=== PATIENT | male | born 1945 | race Caucasian/White ===

== ENCOUNTER 2024-02-22 20:35 | Observation (INO) | payer MEDICARE, OTHER, SELFPAY ==
[2024-02-22] VITALS (11 sets, daily range): BP systolic 118–137; BP diastolic 70–91; BMI 24.8
[2024-02-22 17:12] LABS: % Basophils 0.6 % (0-2); % Eosinophils 1.4 % (0-6); % Immature Granulocytes 0.2 % (0-0.5); % Lymphocytes 36.1 % (20.5-51.1); % Monocytes 8.7 % (1.7-9.3); Absolute Eosinophils 0.1 10^3/uL (0-0.7); Absolute Lymphocytes 1.8 10^3/uL (1.2-3.4); Absolute Monocytes 0.4 10^3/uL (0.1-0.6); Absolute Neutrophils 2.7 10^3/uL (1.4-6.5); Hematocrit 39.1 % (39.0-52.0); Hemoglobin 13.3 g/dL (13.0-18.0); Mean Corpuscular Volume 91.1 fL (80.0-94.0); Mean Platelet Volume 9.4 fL (7.4-10.4); Nucleated Red Blood Cells % 0 % (-); Platelet Count 175 10^3/uL (130-400); Red Blood Cell Count 4.29 10^6/uL (4.70-6.10); Red Cell Dist. Width 13.6 % (11.5-14.5)
[2024-02-22 17:21] LABS: PT 16.2 Sec (11.4-14.6)
[2024-02-22 17:22] LABS: APTT 33.9 Sec (23.4-35.0)
[2024-02-22 17:24] LABS: ALT (SGPT) 15 U/L (0-50); AST (SGOT) 25 U/L (17-59); Alkaline Phosphatase 69 U/L (38-126); Blood Urea Nitrogen 20 mg/dl (9-20); Calcium 9.3 mg/dl (8.4-10.2); Carbon Dioxide 26 mmol/L (22-30); Chloride 106 mmol/L (98-107); Estimated Creatinine Clearance 81 ml/min; Glucose 98 mg/dl (70-99); Potassium 4.4 mmol/L (3.5-5.1); Sodium 139 mmol/L (135-145); Total Bilirubin 0.6 mg/dl (0.2-1.3); eGFR > 60.00
--- NOTE | 2024-02-22 18:41 | ED.CVA ---
History of Present Illness
General
Chief Complaint: CVA/TIA Symptoms
Source: patient and spouse
Exam Limitations: none
Time Seen by Provider: 02/22/24 16:45
Nursing documentation reviewed up to this point in time: agreed with
Onset of Stroke Symptoms
Onset of symptoms known: Yes
Date of onset of symptoms: 02/22/24
Travel History
Have you had any contact with someone who has COVID-19?: No
Do you have any symptoms of coronavirus? Fever > 100 degrees, chills, cough, shortness of breath, sore throat, loss of taste or smell, muscle aches, or headache?: No
History of Present Illness
History of Present Illness:
78-year-old male with past medical history of recently diagnosed atrial fibrillation on Eliquis, TIA presents to the emergency room with his for evaluation after an episode of speech disturbance. Patient reports that he had a normal morning�he
says that he woke up early, did some yard work including mowing the lawn and gardening. He says that he came in for lunch in the early afternoon and after lunch was trying to read something on his phone�he estimates that it was about 1 or 1:30 PM.
He says that while he was reading it he realized that he could not understand the words that he was reading. He says that he tried to say them out loud to himself but all that came out was gibberish. His was with him and says that he sounded
like he was speaking nonsense. She did not notice any facial droop. He says that he did not notice any change to his vision. He says he did not notice any focal weakness or numbness in his extremities. He did not have any headache. He did not
have any chest pain or palpitations or any other symptoms during this episode. He says that it lasted for about 20 minutes and by the time he arrived to the emergency room his symptoms have resolved. He says he had a very similar episode about a
year ago and was told that it was related to a TIA that she was recommended to start aspirin and statin but admits that he has not been compliant. Of note, patient was seen by his primary physician yesterday for a checkup and was found to be in
A-fib on EKG�he was sent to the emergency room (he says that he went to [facility] in [place]) and diagnosed with A-fib and was started on Eliquis; he had his first dose this morning. Here in the emergency room patient is asymptomatic says that
he feels well and offers no complaints.
Review of Systems
Review of Systems
All Other Systems: ROS reviewed and negative except as documented in HPI and ROS
Constitutional: Denies fever or chills
Respiratory: Denies cough or trouble breathing
Cardiac: Denies chest pain, palpitations or syncope
ABD/GI: Denies abdominal pain, nausea, vomiting or diarrhea
: Denies flank pain
Musculoskeletal: Denies neck pain or back pain
Neurological: Reports other (Speech disturbance); Denies dizzy, headache, weakness or numbness
Phy Exam
Physical Exam
Physical Exam:
General: Awake, alert, oriented x3; no acute distress
Head: Normocephalic, atraumatic
Eyes: Conjunctiva normal, EOMI, pupils equal round and reactive to light bilaterally
Throat: Airway intact, handling secretions
Neck: Trachea midline, supple without meningismus
Lungs: Clear to auscultation bilaterally, no wheezing, rales, rhonchi
Heart: Regular rate and rhythm, no murmurs, gallops, or rubs
Abd: Soft, non distended, nontender
Neuro: Cranial nerves intact 2 through 12, speech is fluent with no dysarthria or aphasia, no limb ataxia, motor and sensory function is intact and symmetric proximally and distally in the upper and lower extremities
Skin: no rash
Extremities: No edema in extremities, equal pulses in all extremities
Scores
NIH Stroke Score
Level of Consciousness: 0 - Alert
LOC Questions: 0-Answers both correctly
LOC Commands: 0-Performs both correctly
Best Horizontal Gaze: 0-Normal
Visual Carnes: 0=Normal, no visual loss
Facial Palsy: 0=Normal, symmetrical
Motor - Right Arm: 0=No drift 10 seconds
Motor - Left Arm: 0=No drift 10 seconds
Motor - Right Le-No drift 5 seconds
Motor - Left Le-No drift 5 seconds
Limb Ataxia: 0-Absent
Sensation: 0-Normal
Best Language: 0-No aphasia
Dysarthria: 0-Normal
Extinction and Inattention: 0-No abnormality
Total Score:: 0
Heart Failure Risk
Heart Failure Risk Score: Not Applicable
Heart Score for Chest Pain Patients
STEMI patient?: Not applicable
Withdrawal Assessment of Alcohol
Withdrawal Assessment Completed?: Not applicable
Course
Orders/Labs/Results
Orders:
Orders
02/22/24 16:50
Electrocardiogram (*1) Urgent
Reason for Study: TIA/Stroke
EKG- Treatment ONCE
02/22/24 17:02
Complete Blood Count/With Diff Urgent
Comprehensive Metabolic Panel Urgent
PTT Urgent
Prothrombin Time Urgent
02/22/24 17:22
NEUROLOGY CONSULT Urgent
Consulting Provider: Sameer Bacon
Was physician already notified: Yes
02/22/24 17:24
CT Head & Neck Angio W/wo IV Urgent
Comment:
Reason For Exam: speech disturbance--rq by neuro
Abnormal Lab Results
02/22/24
17:02
RBC 4.29 L 10^6/uL
(4.70-6.10)
PT 16.2 H Sec
(11.4-14.6)
Total Protein 6.0 L g/dl
(6.3-8.2)
02/22/24 17:02
02/22/24 17:02
Vital Signs
Initial and Last Documented VS:
Initial Vital Signs
Temp Pulse Resp BP Pulse Ox
36.7 C 61 16 132/83 99
02/22/24 16:35 02/22/24 16:35 02/22/24 16:35 02/22/24 16:35 02/22/24 16:35
Last Documented Vital Signs
Temp Pulse Resp BP Pulse Ox
36.7 C 53 18 137/91 99
02/22/24 16:35 02/22/24 18:45 02/22/24 18:45 02/22/24 18:35 02/22/24 18:45
MDM/Problems Addressed
Differential Diagnosis Includes:
TIA, seizure, complex migraine
MDM/Problems Addressed:
78-year-old male with history as above presents for evaluation after what sounds like an episode of receptive and expressive aphasia. Lasted for 20 minutes and resolved. Feels well here in the emergency room. Vital signs are normal. Exam as
above�NIH stroke scale 0., Picture is consistent with a TIA. Plan to place an IV check labs including CBC and CMP; discussed case with neurology will send for CTA head and neck. Check an EKG. Will monitor closely reassess after the above.
Labs reviewed: CBC unremarkable, CMP no clinically significant abnormalities. CTA head and neck negative for any acute pathology. Patient in sinus rhythm with stable vitals. Will plan to admit for neurochecks, neuroconsult. Discussed with
hospitalist for admission.
Chronic conditions affecting care:
Atrial fibrillation
*Radiology
Radiology exam reviewed: radiology read reviewed
*Pulse Oximetry
Patient hypoxic: no
*EKG
Interpreted by ED Provider?: Yes
Heart Rate: 59
Rate: normal
Rhythm: sinus
[place]: normal axis
Interval: normal interval
QRS Pattern: normal QRS
Ischemia: no ischemia
*Critical Care Note
Total Time (30-74mins, 75-104mins- exclusive of procedures): Not Applicable
Data Reviewed
Source: patient and spouse
Patient Management
Discussion with other providers: Hospitalist (Discussed with hospitalist) and Cumulative Effects Analyst (Discussed with neurology)
Escalation/DeEscalation of care consider admission/obs:
Admission indicated
ED Attending Note
-
Portions of this chart may have been created with voice recognition software.� Occasional wrong word or��sound alike� substitutions may have occurred due to the inherent limitations of voice recognition software.
Discharge Plan
Departure
Patient Disposition: Admit
Date of Disposition: 02/22/24
Time of Disposition: 18:56
Presentation/result/management discussed w/ accepting MD/DO: Hospitalist
Discharge Problem:
Brain TIA
Referrals:
Hernán Pérez DO [Family Provider] -
Interventions
Interventions:
*Risk Screen - Suicide Last Done: 02/22/24 17:14
*General Assessment Last Done: 02/22/24 17:14
*Neglect/Abuse Screening Last Done: 02/22/24 17:14
*ED COVID-19 Vaccine History Last Done: 02/22/24 16:35
ED- Pulmonary Assessment Last Done: 02/22/24 17:06
ED- Neurological Assessment Last Done: 02/22/24 17:06
ED- Cardiac Assessment Last Done: 02/22/24 17:06
Discharge Date and Time
Print Language: PERSIAN
[2024-02-22] MEDS: ASPIRIN 325 MG PO (19:08)
--- NOTE | 2024-02-22 19:24 | HPS.HSE ---
Family Physician
-
Family Physician: Hernán Pérez
Chief Complaint
-
difficulty speaking
History of Present Illness
78-year-old male past medical history of recently diagnosed atrial fibrillation on Eliquis, TIA, presented to the emergency room for episode of speech disturbance. Patient states that he was normal in the morning and woke up early and did some yard
work. Around 1:30 PM he was trying to read something on his phone and while he was reading it he realized that he could not understand the words that he was reading. He tried to say them out loud to himself but only chiara was coming out.
was with him and stated that he was speaking nonsense. She did not notice any facial droop. He denies any changes in vision. He denies any focal weakness or numbness in the extremities. He denies headache. Denies balance problem. He denies chest
pain or palpitations. The symptoms lasted 20 minutes and resolved by time he came to the emergency room.
He had a very similar episode a year ago and was told that it was a TIA and he was recommended to start aspirin and statin but admits that he has not been compliant with this.
Patient was primary physician yesterday for checkup and was found to be in new onset atrial fibrillation and was started on Eliquis which he took the first dose this morning. Patient had an episode of chest pressure last week and palpitations and
on his watch naveen, he had noted that he was in possible A-fib.
He denies smoking or alcohol use.
Mother with PVCs, father and brother with coronary artery disease.
Medical History
Past Medical History
Past Medical History: Reports Other (recently diagnosed atrial fibrillation on Eliquis, TIA)
Past Surgical History: Reports Other (Tonsillectomy)
Social History
Tobacco: Non-smoker
Alcohol: None
Drug: None
Family History
Family History: Other
Allergies / Home Medications
Allergies reflects when Allergies were last updated in [employer].
Home Medications with original date entered in [employer]
Allergy/Medication List:
Allergies
Allergy/AdvReac Type Severity Reaction Status Date / Time
No Known Allergies Allergy Verified 02/22/24 16:41
Home Medications
No Meds [No Current Medications] 02/22/24
Review of Systems
-
History Source: Patient
A 12 point ROS was completed and negative except as noted: Yes
Constitutional: Reports No Symptoms
EENT: Reports No Symptoms
Respiratory: Reports No Symptoms
Cardiac: Reports No Symptoms
Abdomen/GI: Reports No Symptoms
: Reports No Symptoms
Musculoskeletal: Reports No Symptoms
Skin: Reports No Symptoms
Neurological: Reports See HPI
Endocrine: Reports No Symptoms
Hematologic/Lymphatic: Reports No Symptoms
Psych: Reports No Symptoms
Physical Exam
Vital Signs
Vital Signs
Temp Pulse Resp BP Pulse Ox
98.1 F 60 18 136/84 99
02/22/24 16:35 02/22/24 19:15 02/22/24 19:15 02/22/24 19:00 02/22/24 19:15
Physical Exam
General: Well Developed, Well Nourished and No Apparent Distress
HEENT: NormoCephalic, Moist mucous membranes and Atraumatic
Respiratory: Clear
Cardiac: S1/S2 and Regular Rhythm; No Murmur or Rub
GI: Soft, Non Tender, Non Distended and Normal Bowel Sounds; No Organomegaly
Rectal: Deferred by Provider
Musculoskeletal: No Clubbing, No Cyanosis and No Edema
Skin: No Rash
Neuro: Nonfocal/grossly intact
Laboratory Results
-
02/22/24 17:02
02/22/24 17:02
Laboratory Results
PT 16.2 Sec (11.4-14.6) H 02/22/24 17:02
INR 1.30 02/22/24 17:02
APTT 33.9 Sec (23.4-35.0) 02/22/24 17:02
Total Bilirubin 0.6 mg/dl (0.2-1.3) 02/22/24 17:02
AST 25 U/L (17-59) 02/22/24 17:02
ALT 15 U/L (0-50) 02/22/24 17:02
Alkaline Phosphatase 69 U/L (38-126) 02/22/24 17:02
Data Reviewed
-
Lab Data: Labs Reviewed by me
Old Records: Reviewed
Impression/Plan
-
IMPRESSION:
PLAN:
# TIA
-CT head and CTA head and neck without any abnormality
-Aspirin 325 mg given,
-Check MRI brain
-Hold Eliquis for now until MRI brain
-Start atorvastatin 40 mg
-Check A1c and lipid panel
Newly diagnosed atrial fibrillation yesterday
-Telemetry
-Hold Eliquis
Full code
DVT prophylaxis�SCDs
Regular diet
[2024-02-22] MEDS: LIPITOR 40 MG PO (21:56)
[2024-02-23] VITALS (13 sets, daily range): BP systolic 110–153; BP diastolic 72–128
[2024-02-23 07:15] LABS: HDL Cholesterol 61 mg/dl; LDL Cholesterol, Calculated 103 mg/dl; Total Cholesterol 176 mg/dl (50-199); Triglyceride 61 mg/dl (10-149); Very Low Density Lipoprotein 12 mg/dl (0-30)
--- NOTE | 2024-02-23 08:12 | CON.NEURO4 ---
Addendum entered and electronically signed by Pedro Anna MD 02/23/24 13:15:
Patient is a 78-year-old man with history of migraine with aura presenting the hospital with episode of visual abnormality and speech abnormality which has resolved.
Patient describes a history of similar episode around 1 year ago for which she had hospitalization brain MRI and neurology evaluation, that episode lasted around 20 to 60 minutes of visual difficulty and speech difficulty.
Patient does report visual aura before migraine headache which is infrequent.
Patient had had a recent new diagnosis of atrial fibrillation and had been started on apixaban.
Yesterday he was sitting in his house reading when he noticed acute onset ability of inability to read words his vision seemed okay but he could not seem to process the words themselves and when he started to speak he could not speak properly so his
brought him to the ER. Total duration of symptoms seems around 20 to 40 minutes with spontaneous resolution. Patient did have mild headache as well as in the day or bowel movement.
Neurologic examination is unremarkable
CT head and CT angiogram of the head and neck unremarkable
Brain MRI shows no acute infarct
Assessment: Most likely this is either TIA or migraine aura. Given atrial fibrillation, his age and possible TIA I do think he needs chronic anticoagulation. Less likely that this is seizure based on a bit too long of a duration of the symptom
episode and previous and current normal EEG studies.
Recommendations
-Not seeing indication for chronic antiseizure medication as I feel this is more likely TIA or migraine aura
-Would restart full dose anticoagulation apixaban 5 mg twice daily
-Start Zetia for control of cholesterol given unable to tolerate statins
-Neurology follow-up 4 to 6 weeks
-No barriers to discharge at this point
Original Note:
Documented by User: Sophy Lima NP 02/23/24 11:36
Consultation - Neurology 4
-
CONSULTING PHYSICIAN: Rabia Anna MD
REFERRING PHYSICIAN: ER/Dr. Will
DICTATED BY: JUSTIN Dexter
DATE/TIME OF REQUEST: 02/22/24
DATE/TIME OF CONSULTATION: 02/23/24
Reason for Consultation: TIA
History of Present Illness:
This is a 78-year-old left-handed male who has presented to the hospital on 02/22/24 with report of transient aphasia. Patient and his via telephone report that over one year ago in October 2022 he had an episode of inability to read and
jumbled speech lasting somewhere around 30-45 minutes. He was evaluated at another hospital at that time and reports having a negative MRI brain. He was told the event was probably a TIA and he was started on aspirin 81mg daily and a statin. He
reports having muscle cramps from atorvastatin and simvastatin in the past and he was not compliant with taking the statin. He followed up outpatient with a Neurologist who that can't remember the name of, and reports that the Neurologist thought
the event sounded more like a seizure and sent him for an EEG. The EEG was unremarkable and he was never started on seizure medication. Since that event he reports that he memory has been noticeably poor. He endorses short and jail memory
issues. He has difficulty remembering names and his tells him he forgets entire conversations. She denies any starring episodes or seizure-like activity. He denies getting lost while driving or any car accidents. He manages the finances
but she has always done this.
Two days ago on 02/21/24 he reports going to his PCP for a scheduled annual physical exam. They did an EKG and told him he was in Afib. They gave him a script for Eliquis 5mg BID and a statin and instructed him to go to the ER for further
evaluation. He was evaluated at [facility] and reports that he was in normal sinus rhythm while he was there and he was discharged home with instructions to follow-up with Cardiology. Then yesterday (02/22/24), he reports doing yard work all
morning without any difficultly. He ate lunch and then around 1330 he picked up a magazine to read and noticed that he could not comprehend any of the written words. He went to talk to his and his speech came out jumbled. This lasted about 20
minutes before resolving. He called his PCP who referred him to the ER for evaluation. CTA head/neck was obtained and is negative for any acute abnormalities. NIHSS was 0. He was not a candidate for TNK/IAT due to NIHSS 0 and no LVO. He had taken
one dose of Eliquis yesterday morning. He was loaded with aspirin in the ER. There was no tongue-biting or incontinence of bowel/bladder associated with this event or last year's event.
Currently (02/23/24), patient reports that his speech is at it's baseline but he feels more forgetful than usual, he could not recall the events of this week until reminded of the story by his . He reports feeling nauseous once this morning but
then had a bowel movement and felt improved. He denies any headache, dizziness, vision change, swallowing difficulty, numbness, weakness, chest pain, and palpitations. He does report that for the past three weeks he has felt short of breath while
walking his dog which is very unusual for him. He has a history of migraine headaches with aura decades ago, and in more recent years he reports having ocular migraines. His ocular migraines are associated with bilateral central vision loss, rarely
this is followed by a headache but his last headache was one year ago. He as had about 3-4 ocular migraines this year, the last one was one month ago. He takes 3 ibuprofen at the onset of his vision change and then goes to sleep and his symptoms
always resolve. He also endorses some mild chronic neck pain and he sees a functional neurologist who does chiropractic work on him as needed. He hasn't been to the chiropractor in at least 6 weeks and reports they only do 'gentle' neck
manipulation. He denies any history of seizure or head/neck trauma. His daughter had epilepsy but they attribute that to starting after she had spinal meningitis at 6m of age.
Past Medical History: TIA, HLD, new diagnosis paroxysmal Afib
Surgical History: Tonsillectomy.
Family History: Daughter- spinal meningitis 6m old, epilepsy since then
Social History: Denies tobacco, alcohol, and illicit drug use. 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 Lives with his .
Allergies: Statins- muscle cramps
Home Medications: See below.
Review of Symptoms:
Patient denies any fever, headache, chest pain, shortness of breath, GI or symptoms.
�Per the HPI.�All systems are reviewed negative except above.
Physical Exam:
The patient is afebrile, abdomen is nondistended, breathing is unlabored, skin is warm and dry, no edema.
NIH Stroke Scale:
I performed the NIH stroke scale on the patient on 02/23/24 at 0830. The patient scored 0 points on the NIH stroke scale assessment, which were assigned as follows: See below.
Neurologic Examination:
The patient is awake, alert and oriented x 3. He is able to follow commands and answer questions appropriately. There is no aphasia or dysarthria. On cranial nerve assessment, pupils are 3 mm bilateral, round and reactive to light and
accommodation. Visual carnes are full. Extraocular movements are intact. Facial sensations are intact and bilaterally symmetrical, there is no facial asymmetry. Hearing is intact bilaterally to normal conversation volume. Tongue palate and uvula are
midline. Sternocleidomastoid strengths are full bilaterally. Motor strengths are 5/5 bilateral upper and lower extremities on medical research [place] scale. There is no drift or involuntary movement noted. Deep tendon reflexes are 2+ bilateral
upper and lower extremities and Babinski is absent bilaterally. Sensations of touch, temperature and vibration are intact and bilaterally symmetrical. There was no extinction noted on double simultaneous stimulation. Coordination is intact by finger
to nose bilaterally.
Lab Results: See below.
Neuro Imaging:
1. CTA Head/Neck 02/22/24: CT of the head without acute intracranial abnormality. No evidence of internal carotid artery or vertebral artery dissection bilaterally. No proximal intracranial arterial stenosis, vessel cut off or displacement.
Differentials for the patient's presentation include:
1. TIA or small ischemic stroke likely producing aphasia.
2. New diagnosis paroxysmal Afib.
3. Low concern for seizure, symptoms less supportive of this and duration of symptoms is longer than would be expected.
4. Possible underlying cognitive impairment.
Patient has the following risk factors for their symptoms: Afib only one dose of OAC, age
IV Tenecteplase/IAT candidacy: He was not a candidate for TNK/IAT due to NIHSS 0 and no LVO.
Recommendations:
-Resume Eliquis 5mg BID given Afib, discontinue aspirin.
-Goal normotension.
-MRI brain noncontrast pending.
-Routine EEG pending.
-LDL goal <70. LDL is 103. Patient is intolerant to statins, initiate Zetia 10mg daily.
-Goal normoglycemia, hbA1c is 5.7.
-NIHSS and neurological checks per unit guidelines.
-Provide patient with a stroke education packet.
-PT/OT/ST evaluations.
-DVT prophylaxis with OAC.
-Neuropsychological testing as an outpatient for memory follow-up.
-Checking blood work for metabolic abnormalities.
-Will follow pending results.
Discussed patient care with: Dr. Anna, the patient, patient's
Vital Signs and Labs
-
Vital Signs and Labs:
Vital Signs
Temp Pulse Resp BP Pulse Ox
97.3 F 73 22 149/74 97
02/23/24 10:37 02/23/24 10:30 02/23/24 10:30 02/23/24 09:00 02/23/24 07:32
Lab Results
02/22/24 17:02
02/22/24 17:02
PT 16.2 Sec (11.4-14.6) H 02/22/24 17:02
INR 1.30 02/22/24 17:02
APTT 33.9 Sec (23.4-35.0) 02/22/24 17:02
Sodium 139 mmol/L (135-145) 02/22/24 17:02
Potassium 4.4 mmol/L (3.5-5.1) 02/22/24 17:02
BUN 20 mg/dl (9-20) 02/22/24 17:02
Glucose 98 mg/dl (70-99) 02/22/24 17:02
Calcium 9.3 mg/dl (8.4-10.2) 02/22/24 17:02
LDL Cholesterol, Calc 103 mg/dl 02/23/24 06:09
Medications
-
Active Medications
Generic Name Dose Route Start Last Admin
Trade Name Gino PRN Reason Stop Dose Admin
Apixaban 5 mg 02/23/24 10:30
Apixaban (Eliquis) 5 Mg Tablet PO 03/22/24 10:29
BID ISAEL
Ezetimibe 10 mg 02/23/24 22:00
Ezetimibe (Zetia) 10 Mg Tablet PO 03/22/24 21:59
HS ISAEL
Sodium Chloride 0 flush 02/22/24 23:00
Sodium Chloride 0.9% (Flush) Syringe IV 03/21/24 22:59
PER PROTOCOL ISAEL
Home Medications
�Medication �Instructions �Recorded
apixaban 5 mg tablet (Eliquis) 5 mg PO BID 02/22/24
NIH Stroke Score
Subsequent NIH Scale
Date of Subsequent NIH Scale: 02/23/24
Time of Subsequent NIH Scale: 08:30
NIH Stroke Score
Level of Consciousness: 0 - Alert
LOC Questions: 0-Answers both correctly
LOC Commands: 0-Performs both correctly
Best Horizontal Gaze: 0-Normal
Visual Carnes: 0=Normal, no visual loss
Facial Palsy: 0=Normal, symmetrical
Motor - Right Arm: 0=No drift 10 seconds
Motor - Left Arm: 0=No drift 10 seconds
Motor - Right Le-No drift 5 seconds
Motor - Left Le-No drift 5 seconds
Limb Ataxia: 0-Absent
Sensation: 0-Normal
Best Language: 0-No aphasia
Dysarthria: 0-Normal
Extinction and Inattention: 0-No abnormality
Total Score:: 0
Modified [place] (mRS) Score
Modified [place] Scale (mRS): No symptoms
Score: 0

Documented by User: Pedro Anna MD 02/23/24 13:12
NIH Stroke Score
NIH Stroke Score
Total Score:: 0
Modified [place] (mRS) Score
Score: 0
[2024-02-23 09:34] LABS: Glycohemoglobin (HgbA1c) 5.7 % (4.0-5.6)
[2024-02-23] MEDS: LOW STRENGTH ASPIRIN 81 MG PO (09:37)
--- NOTE | 2024-02-23 10:39 | PTCARENOTE ---
pt aaox3. nihss done with maintenance technician 3rd shift rn zero. pt states he has no pain but did have a bought of nausea that passed after a BM. no headache. does state ringing in his ears since admission but has improved.
--- NOTE | 2024-02-23 11:03 | CM ---
CM reviewed medical records. REID given.
Patient confirmed demographics. Patient lives independently with spouse in a two story home. Patient does not have a history of VN, SNF or DME. Patient is active with his PCP. Patient uses [facility] for medication services. CM will continue to follow as
needed pending continued medical work up and PT recommendations.
PLAN: home vs. Home with VN vs. Outpatient PT
[2024-02-23] MEDS: ELIQUIS 5 MG PO (12:13)
--- NOTE | 2024-02-23 12:17 | EEG.RPT ---
Electroencephalogram Report
Recording
Date of EE02/23/24
Type of EEG: Routine
Length of EEG recordin minutes
Done with Video Recording: Yes
Patient Status: Emergency Room
Recording Conditions: Awake, Drowsy and Asleep
Hyperventilation Performed: No
Photic Stimulation Performed: Yes
Report
GREATER THAN 1 HOUR EEG REPORT
EEG INTERPRETATION:
Unremarkable EEG for age
CLINICAL CORRELATION:
A normal EEG does not rule out a diagnosis of epilepsy. If clinical suspicion for seizure persists, a prolonged recording may be warranted.
Clinical correlation is advised.
METHODS:
A 21 channel digitized electroencephalogram (EEG) was performed in the [facility]. The 10/20 international system of electrode placement was used with ECG and lateral/vertical eye movements recorded. Persyst quantitative EEG
analysis was performed.
ELECTROENCEPHALOGRAPHER IMPRESSION(S):
Quality of study
Good
Background
Unremarkable, well maintained, medium amplitude alpha-frequency and unremarkable anterior-posterior voltage gradient
With eye opening the background activity changed to a low voltage mixture of frequencies.
Sleep
Drowsiness present
Stage 1 and 2
Photic Stimulation
Did not activate the record
ECG
Normal sinus rhythm
--- NOTE | 2024-02-23 13:54 | W.PN.HOSP.TC ---
Addendum entered and electronically signed by Nixon Eugene MD 02/23/24 14:27:
Spoke with neurology and will discharge patient home
Time of discharge 36 minutes
Original Note:
Today's Communication/Plan
-
Monitor vital signs and see plan
MRI
Possible DC today if okay with PT/OT
Continue Eliquis
Neurology follow-up outpatient
Assessment / Plan
Assessment / Plan
General: Well Developed, Well Nourished and No Apparent Distress
HEENT: NormoCephalic, Moist mucous membranes and Atraumatic
Respiratory: Clear
Cardiac: S1/S2 and Regular Rhythm; No Murmur or Rub
GI: Soft, Non Tender, Non Distended and Normal Bowel Sounds; No Organomegaly
Rectal: Deferred by Provider
Musculoskeletal: No Clubbing, No Cyanosis and No Edema
Skin: No Rash
Neuro: Nonfocal/grossly intact
TIA
-CT head and CTA head and neck without any abnormality
MRI negative for acute CVA. Did show some atrophy. EEG was also negative. Per neurology this could be likely TIA. Neurology is okay with patient going home on Eliquis. Started Zetia.
-Check MRI brain
-Hold Eliquis for now until MRI brain
-Start atorvastatin 40 mg
-Check A1c and lipid panel
Prediabetes
monitor
Newly diagnosed atrial fibrillation; unable to further clarify
-Telemetry
currently in sinus
eliquis restarted
recommend patient to get echo outpatient
Full code
DVT prophylaxis�eliquis
Anticipated Discharge: Today
Subjective/Interval History
-
Date of Service: February 23, 2024
denies headache
Objective Data
-
Vital Signs:
Vital Signs
Temp Pulse Resp BP Pulse Ox
97.3 F 73 22 149/74 97
02/23/24 10:37 02/23/24 10:30 02/23/24 10:30 02/23/24 09:00 02/23/24 07:32
--- NOTE | 2024-02-23 14:27 | W.DCSUMMARY ---
Discharge Summary
Discharge Data
Date of Admission: 02/22/24
Date of Discharge: 02/23/24
-
Pending Results: No
Hospital Course
78-year-old male with past medical history of recently diagnosed atrial fibrillation came to the hospital with aphasia. CT scan initially did not show any signs of stroke. Patient was seen by neurology throughout hospitalization. Given his recent
diagnosis of atrial fibrillation there was concern of patient having CVA. MRI however was negative for any acute stroke. Neurology thought patient's symptoms could likely be from a TIA event and they recommended patient to continue Eliquis
indefinitely. His LDL was also elevated so he was started on Zetia. His A1c was 5.7 consistent with prediabetes. Patient was also eval by physical therapy and was recommended home on dc. Once patient symptoms resolved, he was then discharged home
with instructions to follow-up with all his physicians outpatient. On discharge he was recommended to get echocardiogram done outpatient.
Discharge Plan
-
Patient Disposition: Home (Routine Discharge)
Discharge Diagnosis/Procedures: Transient ischemic attack
Pre prediabetes
Hyperlipidemia
Newly diagnosed atrial fibrillation
Diet: As tolerated
Activity: As tolerated
Driving Restrictions: As prior to admission
Bathing Restrictions: None
Others Tests: Echocardiogram with your primary care provider
Referrals:
Hernán Pérez DO [Family Provider] - in less than 1 week
Sameer Bacon MD [Active] - in three to four weeks
Prescriptions:
New
ezetimibe 10 mg Tablet
10 mg PO HS Qty: 30 0RF
Continued
Eliquis 5 mg Tablet
5 mg PO BID
Discharge Orders:
Discharge Patient (As Directed); Ordered 02/23/24
Ordered By: Nixon Eugene
Discharge Date and Time
Discharge Date/Time: 02/23/24 15:11
Print Language: WELSH
--- NOTE | 2024-02-23 14:29 | PTOTSP ---
The patient is independent with mobility, no strength, coordination, or balance deficits noted. No PT needs identified at this time, will sign off.
[2024-02-23 15:06] LABS: TSH Reflex To Free T4 1.34 uIU/ml (0.47-4.68)
[2024-02-23 15:41] LABS: Folate 14.3 ng/ml (2.76-20); Vitamin B12 193 pg/ml (239-931)
== END 2024-02-23 15:11 | disposition home or self-care (01) ==
LOC: ED 20:35
PROVIDERS: ADMITTING PHYSICIAN Hospitalist; ATTENDING PHYSICIAN Internal Medicine; EMERGENCY PHYSICIAN Emergency Medicine; FAMILY PHYSICIAN Family Medicine; OTHER PHYSICIAN Student in an Organized Health Care Education/Training Program
DX: G45.9 Transient cerebral ischemic attack, unspecified (principal); R47.01 Aphasia; I48.0 Paroxysmal atrial fibrillation; R73.03 Prediabetes; E78.5 Hyperlipidemia, unspecified; Z91.148 Patient's other noncompliance with medication regimen for other reason; Z82.49 Family history of ischemic heart disease and other diseases of the circulatory system
CPT/HCPCS: 70496; 70498; 70551; 80053; 80061; 82607; 82728; 82746; 83036; 84443; 85025; 85610; 85730; 93005; 95816; 97166; 99285; G0378; Q9967